=== PATIENT | male | born 1985 | race African-American/Black ===

== ENCOUNTER 2018-01-06 22:30 | Emergency (ER) | payer SELFPAY ==
[2018-01-06] MEDS ORDERED: FLUORESCEIN SODIUM 0.6 MG/WRAP ONE (23:54)
[2018-01-06] MEDS ORDERED: TETRACAINE HCL 0.5% 2ML OPTH ONE (23:55)
--- NOTE | 2018-01-07 00:21 | ER ---
Nurse's Notes [facility] Name: Elly Funez Age: 32 yrs Sex: Male : 1985 Arrival Date: 01/06/2018 Time: 22:36 Bed 24 Private MD: Diagnosis: Injury of conjunctiva and corneal abrasion without foreign body Presentation: 01/06 22:47 Presenting complaint: Patient states: "I don't know what happened but I woke up with my lp1 eye swollen and red on Sunday"; Patient states he was working around rust, "feels like something is scratching my eye"; redness to right eye noted. Transition of care: patient was not received from another setting of care. Onset of symptoms was January 02, 2018. Risk Assessment: Do you want to hurt yourself or someone else? Patient reports no desire to harm self or others. Initial Sepsis Screen: Does the patient meet any 2 criteria? No. Patient's initial sepsis screen is negative. Does the patient have a suspected source of infection? No. Patient's initial sepsis screen is negative. Care prior to arrival: None. 22:47 Method Of Arrival: Ambulatory lp1 22:47 Acuity: RAFA 4 lp1 Triage Assessment: 22:50 General: Appears in no apparent distress. Behavior is appropriate for age. Pain: lp1 Complains of pain in right eye. EENT: Sclera/Cornea are reddened in outer aspect of conjuctiva of right eye, iris of right eye and inner aspect of conjuctiva of right eye. Historical: - Allergies: 22:50 No Known Allergies; lp1 - Home Meds: 22:50 None [Active]; lp1 - PMHx: 22:50 None; lp1 - PSHx: 22:50 None; lp1 - Immunization history:: Adult Immunizations up to date. - Social history:: Smoking status: Patient/guardian denies using tobacco. - Ebola Screening: : No symptoms or risks identified at this time. Screenin:50 Abuse screen: Denies threats or abuse. Denies injuries from another. Nutritional lp1 screening: No deficits noted. Tuberculosis screening: No symptoms or risk factors identified. Fall Risk None identified. Assessment: 23:00 General: Appears in no apparent distress. comfortable, well groomed, well developed, kr2 well nourished, Behavior is calm, cooperative, appropriate for age. Pain: Complains of pain in right eye Pain currently is 6 out of 10 on a pain scale. Quality of pain is described as burning, tender, Is continuous, Alleviated by nothing. Neuro: Level of Consciousness is awake, alert, obeys commands, Oriented to person, place, time, situation, Appropriate for age. Cardiovascular: Capillary refill < 3 seconds in bilateral fingers Patient's skin is warm and dry. Respiratory: Airway is patent Respiratory effort is even, unlabored, Respiratory pattern is regular, symmetrical. EENT: Sclera/Cornea are reddened in right eye Oral mucosa is moist. Derm: Skin is intact, is healthy with good turgor, Skin is pink, warm \\T\\ dry. Vital Signs: 22:49 BP 116 / 79; Pulse 79; Resp 16; Temp 98.1(O); Pulse Ox 97% on R/A; Weight 90.72 kg; lp1 Height 5 ft. 7 in. (170.18 cm); Pain 6/10; 22:49 Body Mass Index 31.32 (90.72 kg, 170.18 cm) lp1 ED Course: 22:36 Patient arrived in ED. es 22:46 Carmelo Nayak MD is Attending Physician. gs 22:49 Triage completed. lp1 22:49 Arm band placed on left wrist. lp1 22:50 Patient has correct armband on for positive identification. lp1 08/13 00:20 Hiren Kearns MD is Referral Physician. gs 00:27 No provider procedures requiring assistance completed. Patient did not have IV access rv during this emergency room visit. Administered Medications: No medications were administered Outcome: 00:21 Discharge ordered by . gs 00:28 Discharged to home ambulatory. rv 00:28 Condition: good 00:28 Discharge instructions given to patient, Instructed on discharge instructions, follow up and referral plans. medication usage, Demonstrated understanding of Prescriptions given X 1. 00:28 Patient left the ED. rv Signatures: Judi James Laura, RN RN lp1 Carmelo Nayak MD MD Ofelia Adan RN RN kr2 Raphael Virk RN RN rv
--- NOTE | 2018-01-07 00:21 | EDPHYS ---
Physician Documentation [facility] Name: Elly Funez Age: 32 yrs Sex: Male : 1985 Arrival Date: 01/06/2018 Time: 22:36 Bed 24 Private MD: ED Physician Carmelo Nayak HPI: 01/07 01:06 This 32 yrs old Black Male presents to ER via Ambulatory with complaints of Foreign gs Body In Eye. 01:06 The patient is experiencing foreign body sensation, to the right eye. Onset: The gs symptoms/episode began/occurred suddenly, 3 day(s) ago. Duration: the symptoms are continuous. Aggravated by blinking, closing eye, Alleviated by nothing. Associated signs and symptoms: Pertinent negatives: chills, headache. Severity of symptoms: At their worst the symptoms were moderate in the emergency department the symptoms are unchanged. The patient has not experienced similar symptoms in the past. says rust blew in eyes at work, irrigated eye still has fb sensation. Historical: - Allergies: 01/06 22:50 No Known Allergies; lp1 - Home Meds: 22:50 None [Active]; lp1 - PMHx: 22:50 None; lp1 - PSHx: 22:50 None; lp1 - Immunization history:: Adult Immunizations up to date. - Social history:: Smoking status: Patient/guardian denies using tobacco. - Ebola Screening: : No symptoms or risks identified at this time. ROS: 01/07 01:06 All other systems are negative. gs Exam: 01:06 Head/Face: Normocephalic, atraumatic. Eyes: Pupils equal round and reactive to light, gs extra-ocular motions intact. Lids and lashes normal. Conjunctiva and sclera are non-icteric and not injected. Cornea within normal limits. Periorbital areas with no swelling, redness, or edema. Neck: Trachea midline, no thyromegaly or masses palpated, and no cervical lymphadenopathy. Supple, full range of motion without nuchal rigidity, or vertebral point tenderness. No Meningismus. Chest/axilla: Normal chest wall appearance and motion. Nontender with no deformity. No lesions are appreciated. Cardiovascular: Regular rate and rhythm with a normal S1 and S2. No gallops, murmurs, or rubs. Normal PMI, no JVD. No pulse deficits. 01:06 Eyes: Periorbital structures: appear normal, Pupils: no acute changes, Extraocular movements: no acute changes, Conjunctiva: exudate, no, injected, in the right eye, Corneas: abrasion, that is small, at 6 o'clock, foreign body, is not appreciated, a fluorescein strip employed to appreciate the findings, Sclera: no appreciated abnormality, Anterior chamber: normal. Vital Signs: 01/06 22:49 BP 116 / 79; Pulse 79; Resp 16; Temp 98.1(O); Pulse Ox 97% on R/A; Weight 90.72 kg; lp1 Height 5 ft. 7 in. (170.18 cm); Pain 6/10; 22:49 Body Mass Index 31.32 (90.72 kg, 170.18 cm) lp1 MDM: 01/07 00:19 Patient medically screened. 01:06 Differential diagnosis: Corneal abrasion of Corneal ulcer of Foreign body in. Data gs reviewed: vital signs, nurses notes. Response to treatment: the patient's symptoms have mildly improved after treatment, and as a result, I will discharge patient. Administered Medications: No medications were administered Disposition: 01/07/18 00:21 Discharged to Home. Impression: Injury of conjunctiva and corneal abrasion without foreign body. - Condition is Stable. - Discharge Instructions: Corneal Abrasion, [id number]. - Prescriptions for Erythromycin 5 mg/gram (0.5 %) Ophthalmic Ointment - apply 1 ribbon by OPHTHALMIC route every 8 hours; 1 tube. - Medication Reconciliation Form, Thank You Letter, Antibiotic Education, Prescription Opioid Use form. - Follow up: Private Physician; When: 2 - 3 days; Reason: Re-evaluation by your physician. Follow up: Hiren Kearns MD; When: 2 - 3 days; Reason: Re-evaluation by your physician. Signatures: Sivan Correia RN RN lp1 Carmelo Naayk MD MD Raphael Virk RN RN rv Corrections: (The following items were deleted from the chart) 00:28 00:21 01/07/2018 00:21 Discharged to Home. Impression: Injury of conjunctiva and rv corneal abrasion without foreign body. Condition is Stable. Forms are Medication Reconciliation Form, Thank You Letter, Antibiotic Education, Prescription Opioid Use. Follow up: Private Physician; When: 2 - 3 days; Reason: Re-evaluation by your physician. Follow up: Hiren Kearns; When: 2 - 3 days; Reason: Re-evaluation by your physician. gs
== END 2018-01-07 00:28 | disposition home or self-care (01) ==
LOC: ER 22:30
DX: S05.01XA Injury of conjunctiva and corneal abrasion without foreign body, right eye, initial encounter (principal)
CPT/HCPCS: 99282